=== PATIENT | female | born 2000 | race Hispanic/Latino ===

== ENCOUNTER 2020-03-20 03:16 | Inpatient (IN) | payer OTHER ==
[~2020-03-20] VITALS: Ht 165.1 cm; Wt 65.5 kg
[2020-03-20] MEDS ORDERED: HYDROCODONE/ACETAMINOPHEN 5/325 MG TAB ONE (03:51)
[2020-03-20] MEDS ORDERED: IBUPROFEN 600 MG TABLET ONE (03:51)
[2020-03-20] MEDS ORDERED: AMPICILLIN SODIUM/SULBACTAM NA 1.5GM VIAL ONE (07:25)
[2020-03-20 09:15] VITALS: BP 96/45
[2020-03-20 12:00] VITALS: BP 113/56
[2020-03-20 16:00] VITALS: BP 122/73
[2020-03-20] MEDS ORDERED: MORPHINE SULFATE 2 MG/ML 1ML SYG IM PRN (16:15)
[2020-03-20] MEDS ORDERED: MORPHINE SULFATE 2 MG/ML 1ML SYG ONE (16:20)
[2020-03-20 20:00] VITALS: BP 118/60
[2020-03-21] VITALS (22 sets, daily range): BP systolic 93–151; BP diastolic 27–91
[2020-03-21] MEDS ORDERED: LACTATED RINGERS 1000ML 1,000 ML IV ONE (12:15)
[2020-03-21 12:21] LABS: AMPHET/METH SCREEN,URINE NEGATIVE (NEGATIVE); BARBITURATE SCREEN, URINE NEGATIVE (NEGATIVE); BENZODIAZEPINES SCREEN,URINE POSITIVE (NEGATIVE); CANNABINOID SCREEN,URINE POSITIVE (NEGATIVE); COCAINE SCREEN,URINE POSITIVE (NEGATIVE); OPIATE SCREEN,URINE NEGATIVE (NEGATIVE); PHENCYCLIDINE SCREEN,URINE NEGATIVE (NEGATIVE)
[2020-03-21] MEDS ORDERED: LIDOCAINE PF 2% 5ML ABBOJECT ONE (12:58)
[2020-03-21] MEDS ORDERED: ONDANSETRON HCL 4 MG/2 ML VIAL ONE (12:58)
[2020-03-21] MEDS ORDERED: DEXAMETHASONE SOD PHOSPHATE 10MG/ML 1ML VIAL ONE (12:58)
[2020-03-21] MEDS ORDERED: MIDAZOLAM HCL 1 MG/ML 2ML VIAL ONE (12:58)
[2020-03-21] MEDS ORDERED: GLYCOPYRROLATE 1 MG/5 ML SYRINGE ONE (12:58)
[2020-03-21] MEDS ORDERED: SUCCINYLCHOLINE CHLORIDE 20 MG/ML 10 ML VIAL ONE (12:58)
[2020-03-21] MEDS ORDERED: NEOSTIGMINE 5MG/5ML SYR IV ONE (12:59)
[2020-03-21] MEDS ORDERED: FENTANYL CITRATE PF 50 MCG/1 ML 2ML VIAL ONE (12:59)
[2020-03-21] MEDS ORDERED: ROCURONIUM 10MG/1ML SYR 10 MG/ML ML ONE (12:59)
[2020-03-21] MEDS ORDERED: CEFAZOLIN SODIUM 1 GM VIAL ONE (12:59)
[2020-03-21] MEDS ORDERED: PROPOFOL 10 MG/ML 20ML VIAL IV ONE (12:59)
[2020-03-21] MEDS ORDERED: OXYMETAZOLINE HCL SPRAY 15 ML BOTTLE ONE (13:16)
== END 2020-03-21 18:55 | disposition home or self-care (01) | DRG 156 ==
LOC: EDH 03:16 → EDHIP 03:17 → 3DH 09:14
PROVIDERS: ADMIT Surgery Plastic and Reconstructive Surgery; ATTEND Surgery Plastic and Reconstructive Surgery
PROC: 0NSBXZZ Reposition Nasal Bone, External Approach (ICD-10-PCS; principal; 2020-03-21 13:00)
DX: S02.2XXA Fracture of nasal bones, initial encounter for closed fracture (principal); Y93.89 Activity, other specified; Y92.89 Other specified places as the place of occurrence of the external cause; Y99.8 Other external cause status; Z20.828 Contact with and (suspected) exposure to other viral communicable diseases
CPT/HCPCS: 70450; 70486; 71045; 80305; 81025; 87426; A4606; A6266; G0378; J0295; J0330; J0690; J1100; J2001; J2250; J2405; J2704; J2710; J3010; J3490; J7120; U0003

== ENCOUNTER 2020-04-25 20:34 | Inpatient (IN) | payer OTHER, SELFPAY ==
[~2020-04-25] VITALS: Ht 165.1 cm; Wt 59.0 kg
[2020-04-25 20:51] LABS: APPEARANCE,URINE Clear (CLEAR); BILIRUBIN,URINE Negative (NEGATIVE); COLOR,URINE Yellow (YELLOW); GLUCOSE, URINE (UA) Negative (NEGATIVE); KETONES,URINE Negative (NEGATIVE); LEUKOCYTE ESTERASE ,URINE Trace (NEGATIVE); NITRATE,URINE Negative (NEGATIVE); OCCULT BLOOD,URINE Negative (NEGATIVE); PH,URINE 6.5 (5.0-8.0); PROTEIN,URINE Negative (NEGATIVE); UROBILINOGEN,URINE 0.2 mg/dL (0.2-1.0)
[2020-04-25 20:59] LABS: AMPHET/METH SCREEN,URINE NEGATIVE (NEGATIVE); BARBITURATE SCREEN, URINE NEGATIVE (NEGATIVE); BENZODIAZEPINES SCREEN,URINE POSITIVE (NEGATIVE); CANNABINOID SCREEN,URINE NEGATIVE (NEGATIVE); COCAINE SCREEN,URINE NEGATIVE (NEGATIVE); OPIATE SCREEN,URINE NEGATIVE (NEGATIVE); PHENCYCLIDINE SCREEN,URINE NEGATIVE (NEGATIVE)
[2020-04-25 21:05] LABS: BACTERIA,URINE Few /HPF (None Seen); MUCUS,URINE Few LPF (None Seen); SQUAMOUS EPITHELIAL CELL,UR Moderate /HPF (0-2)
[2020-04-25 21:14] LABS: BASOPHILS % (AUTO) 0.3 % (0.0-5.0); EOSINOPHILS % (AUTO) 1.6 % (0.0-8.0); HEMATOCRIT 38.1 % (36-48); LYMPHOCYTES % (AUTO) 55.4 % (21.0-51.0); MEAN CORPUSCULAR HEMOGLOBIN 27.2 pg (27.0-33.0); MEAN CORPUSCULAR HGB CONC 32.8 g/dL (32.0-36.0); MEAN CORPUSCULAR VOLUME 82.8 fL (80-100); NEUTROPHILS % (AUTO) 31.5 % (40.0-77.0); PLATELET COUNT (AUTO) 200 K/uL (130-400); RED CELL DISTRIBUTION WIDTH 13.4 % (11.0-15.5); WHITE BLOOD COUNT (AUTO) 6.4 K/uL (4.8-10.8)
[2020-04-25 21:25] LABS: CARBON DIOXIDE 29 mmol/L (21-32); CHLORIDE 102 mmol/L (101-111); GLOMERULAR FILTR. RATE CALC 75 mL/min (>60); GLUCOSE,RANDOM 94 mg/dL (70-105); POTASSIUM 3.1 mmol/L (3.5-5.1); SODIUM SERUM 142 mmol/L (136-145); UREA NITROGEN, BLOOD 10 mg/dL (7-18)
[2020-04-25 21:30] LABS: ALANINE AMINOTRANSFERASE 32 U/L (12-78); ALBUMIN 4.2 g/dL (3.5-5.0); ASPARTATE AMINOTRANSFERASE 30 U/L (10-37); BILIRUBIN,TOTAL 0.2 mg/dL (0.2-1.0); TOTAL PROTEIN, SERUM 8.3 g/dL (6.0-8.3)
[2020-04-25 21:32] LABS: ALCOHOL, BLOOD < 3 mg/dL (0-10)
[2020-04-25 21:43] LABS: SALICYLATE < 2.8 mg/dL (2.8-20.0)
[2020-04-25 21:44] LABS: ACETAMINOPHEN 66 mcg/mL (10-30)
[2020-04-25] MEDS ORDERED: ONDANSETRON ODT 4MG TAB ONE (22:45)
[2020-04-26] MEDS ORDERED: ACETYLCYSTEINE 20% 200MG/ML 30ML VIAL ONE ×3 (02:01→10:30)
[2020-04-26] MEDS ORDERED: 0.9% NACL 500ML IV.SOLN 500 ML IV ONE ×2 (02:08→10:31)
[2020-04-26] MEDS ORDERED: DEXTROSE 5%-WATER 500 ML IV ONE (04:54)
[2020-04-26 05:28] LABS: CREATININE 0.8 mg/dL (0.5-1.5); POTASSIUM 3.3 mmol/L (3.5-5.1)
[2020-04-26 05:39] LABS: ALBUMIN 4.2 g/dL (3.5-5.0); BILIRUBIN,TOTAL 0.3 mg/dL (0.2-1.0); INR 1.09 (0.85-1.15); PROTHROMBIN TIME 11.8 SEC (9.6-11.6); TOTAL PROTEIN, SERUM 7.8 g/dL (6.0-8.3)
[2020-04-26 05:40] LABS: PARTIAL THROMBOPLASTIN TIME 34.5 SEC (26.3-35.5)
[2020-04-26] MEDS ORDERED: ONDANSETRON 4MG INJ IVP PRN (09:00)
[2020-04-26] MEDS: 0.9%NACL 1000ML 1,000 ML IV SCH (09:00)
[2020-04-26 09:37] LABS: INR 1.13 (0.85-1.15); PROTHROMBIN TIME 12.2 SEC (9.6-11.6)
[2020-04-26 09:38] LABS: PARTIAL THROMBOPLASTIN TIME 34.2 SEC (26.3-35.5)
[2020-04-26 09:47] LABS: ACETAMINOPHEN 141 mcg/mL (10-30); ALANINE AMINOTRANSFERASE 29 U/L (12-78); ALBUMIN 4.2 g/dL (3.5-5.0); ASPARTATE AMINOTRANSFERASE 26 U/L (10-37); BILIRUBIN,DIRECT < 0.1 mg/dL (0.0-0.3); BILIRUBIN,TOTAL 0.3 mg/dL (0.2-1.0); TOTAL PROTEIN, SERUM 7.8 g/dL (6.0-8.3)
[2020-04-26] MEDS ORDERED: ACETYLCYSTEINE 20% 200MG/ML 4ML VIAL ONE (10:29)
[2020-04-26] MEDS ORDERED: 0.9%NACL 1000ML 1,000 ML IV ONE (10:38)
[2020-04-26 12:37] LABS: INR 1.15 (0.85-1.15); PROTHROMBIN TIME 12.4 SEC (9.6-11.6)
[2020-04-26 12:39] LABS: PARTIAL THROMBOPLASTIN TIME 36.7 SEC (26.3-35.5)
[2020-04-26 12:46] LABS: ALANINE AMINOTRANSFERASE 28 U/L (12-78); ASPARTATE AMINOTRANSFERASE 24 U/L (10-37); BILIRUBIN,DIRECT < 0.1 mg/dL (0.0-0.3); BILIRUBIN,TOTAL 0.3 mg/dL (0.2-1.0); TOTAL PROTEIN, SERUM 7.5 g/dL (6.0-8.3)
[2020-04-26 12:57] LABS: ACETAMINOPHEN 104 mcg/mL (10-30)
[2020-04-26 15:53] LABS: INR 1.13 (0.85-1.15); PROTHROMBIN TIME 12.2 SEC (9.6-11.6)
[2020-04-26 16:01] LABS: ALANINE AMINOTRANSFERASE 28 U/L (12-78); ALBUMIN 4.1 g/dL (3.5-5.0); ASPARTATE AMINOTRANSFERASE 20 U/L (10-37); BILIRUBIN,TOTAL 0.2 mg/dL (0.2-1.0); TOTAL PROTEIN, SERUM 7.8 g/dL (6.0-8.3)
[2020-04-26 16:08] LABS: ACETAMINOPHEN 71 mcg/mL (10-30)
[2020-04-26 16:09] LABS: BILIRUBIN,DIRECT < 0.1 mg/dL (0.0-0.3)
[2020-04-26 18:35] LABS: INR 1.14 (0.85-1.15); PROTHROMBIN TIME 12.3 SEC (9.6-11.6)
[2020-04-26 18:36] LABS: PARTIAL THROMBOPLASTIN TIME 35.6 SEC (26.3-35.5)
[2020-04-26] MEDS ORDERED: LORAZEPAM 2 MG/ML 1 ML VIAL IVP PRN (19:15)
[2020-04-26 19:27] LABS: ALBUMIN 3.8 g/dL (3.5-5.0); BILIRUBIN,DIRECT 0.1 mg/dL (0.0-0.3); BILIRUBIN,TOTAL 0.2 mg/dL (0.2-1.0); TOTAL PROTEIN, SERUM 7.2 g/dL (6.0-8.3)
[2020-04-26] MEDS ORDERED: KCL 20 MEQ ERTAB PO SCH (20:26)
[2020-04-26] MEDS ORDERED: POTASSIUM CHLORIDE 10% ELIXIR 20 MEQ/15 ML UDCUP ONE (20:47)
[2020-04-26] MEDS ORDERED: FAMOTIDINE 20MG VIAL IV SCH (21:00)
[2020-04-26 21:38] LABS: ALBUMIN 3.7 g/dL (3.5-5.0); BILIRUBIN,DIRECT 0.1 mg/dL (0.0-0.3); BILIRUBIN,TOTAL 0.2 mg/dL (0.2-1.0); INR 1.12 (0.85-1.15); PROTHROMBIN TIME 12.1 SEC (9.6-11.6)
[2020-04-26 21:39] LABS: PARTIAL THROMBOPLASTIN TIME 35.3 SEC (26.3-35.5)
[2020-04-27] MEDS ORDERED: ACETYLCYSTEINE 20% 200MG/ML 30ML VIAL ONE (00:15)
[2020-04-27] MEDS ORDERED: DEXTROSE 5%-WATER 500 ML IV ONE (00:27)
[2020-04-27 01:17] LABS: INR 1.14 (0.85-1.15); PROTHROMBIN TIME 12.3 SEC (9.6-11.6)
[2020-04-27 01:18] LABS: PARTIAL THROMBOPLASTIN TIME 34.5 SEC (26.3-35.5)
[2020-04-27 01:20] LABS: ALBUMIN 3.7 g/dL (3.5-5.0); BILIRUBIN,DIRECT 0.1 mg/dL (0.0-0.3); BILIRUBIN,TOTAL 0.2 mg/dL (0.2-1.0); TOTAL PROTEIN, SERUM 7.1 g/dL (6.0-8.3)
[2020-04-27] MEDS: 0.9%NACL 1000ML 1,000 ML IV SCH (05:00)
[2020-04-27 06:20] LABS: ALANINE AMINOTRANSFERASE 23 U/L (12-78); ALBUMIN 3.6 g/dL (3.5-5.0); ASPARTATE AMINOTRANSFERASE 21 U/L (10-37); BILIRUBIN,DIRECT < 0.1 mg/dL (0.0-0.3); BILIRUBIN,TOTAL 0.2 mg/dL (0.2-1.0); PHOSPHORUS 2.8 mg/dL (2.5-4.9); TOTAL PROTEIN, SERUM 6.8 g/dL (6.0-8.3)
[2020-04-27 06:21] LABS: INR 1.13 (0.85-1.15); PROTHROMBIN TIME 12.2 SEC (9.6-11.6)
[2020-04-27 06:22] LABS: PARTIAL THROMBOPLASTIN TIME 34.5 SEC (26.3-35.5)
[2020-04-27] MEDS ORDERED: MAGNESIUM 2GM PREMIX 50ML 50 ML IV PRN (07:30)
[2020-04-27] MEDS ORDERED: MAGNESIUM 2GM PREMIX 50ML 50 ML IV ONE (07:43)
[2020-04-27] MEDS ORDERED: PANTOPRAZOLE 40 MG TAB DR ONE (08:41)
[2020-04-27] MEDS: FOLIC ACID 1 MG, THIAMINE HCL 100 MG in 0.9%NACL 1000ML 1,000 ML IV SCH (09:00)
[2020-04-27] MEDS: PANTOPRAZOLE 40 MG TAB DR PO SCH (09:00)
[2020-04-27 10:21] LABS: INR 1.08 (0.85-1.15); PROTHROMBIN TIME 11.7 SEC (9.6-11.6)
[2020-04-27 10:22] LABS: PARTIAL THROMBOPLASTIN TIME 33.5 SEC (26.3-35.5)
[2020-04-27 10:43] LABS: ALBUMIN 3.4 g/dL (3.5-5.0); BILIRUBIN,DIRECT 0.1 mg/dL (0.0-0.3); BILIRUBIN,TOTAL 0.2 mg/dL (0.2-1.0); TOTAL PROTEIN, SERUM 6.8 g/dL (6.0-8.3)
[2020-04-27 11:00] VITALS: BP 115/70
[2020-04-27 15:57] VITALS: BP 116/90
[2020-04-27 19:45] VITALS: BP 100/67
[2020-04-27 20:22] VITALS: BP 131/77
[2020-04-28] VITALS: BP 107/66
[2020-04-28 04:00] VITALS: BP 121/68
[2020-04-28 06:27] LABS: HEMATOCRIT 35.3 % (36-48); MEAN CORPUSCULAR HEMOGLOBIN 26.7 pg (27.0-33.0); MEAN CORPUSCULAR HGB CONC 32.3 g/dL (32.0-36.0); MEAN CORPUSCULAR VOLUME 82.7 fL (80-100); RED BLOOD CELL COUNT(AUTO) 4.27 MIL/uL (4.00-5.50); RED CELL DISTRIBUTION WIDTH 13.2 % (11.0-15.5); WHITE BLOOD COUNT (AUTO) 4.5 K/uL (4.8-10.8)
[2020-04-28 06:56] LABS: ALANINE AMINOTRANSFERASE 26 U/L (12-78); ALBUMIN 3.6 g/dL (3.5-5.0); ASPARTATE AMINOTRANSFERASE 25 U/L (10-37); BILIRUBIN,TOTAL 0.3 mg/dL (0.2-1.0); CARBON DIOXIDE 22 mmol/L (21-32); CHLORIDE 106 mmol/L (101-111); CREATININE 0.7 mg/dL (0.5-1.5); GLOMERULAR FILTR. RATE CALC 113 mL/min (>60); GLUCOSE,RANDOM 81 mg/dL (70-105); POTASSIUM 3.6 mmol/L (3.5-5.1); SODIUM SERUM 140 mmol/L (136-145); TOTAL PROTEIN, SERUM 7.1 g/dL (6.0-8.3); UREA NITROGEN, BLOOD 9 mg/dL (7-18)
[2020-04-28 06:57] LABS: ACETAMINOPHEN < 1 mcg/mL (10-30)
[2020-04-28 08:00] VITALS: BP 120/66
[2020-04-28] MEDS: PANTOPRAZOLE 40 MG TAB DR PO SCH (08:43)
[2020-04-28] MEDS: FOLIC ACID 1 MG, THIAMINE HCL 100 MG in 0.9%NACL 1000ML 1,000 ML IV SCH (09:49)
[2020-04-28 12:00] VITALS: BP 115/67
[2020-04-28] MEDS ORDERED: ASCO500W7 PO (14:42)
[2020-04-28] MEDS ORDERED: CHOL500050 PO (14:42)
[2020-04-28 16:00] VITALS: BP 124/58
== END 2020-04-28 18:00 | disposition home or self-care (01) | DRG 179 ==
LOC: EDH 20:34 → EDHIP 20:35 → 4BH 04-27 10:43 → 4AH 04-27 18:05
PROVIDERS: ADMIT Family Medicine; ATTEND Family Medicine
DX: U07.1 COVID-19 (principal); T39.1X2A Poisoning by 4-Aminophenol derivatives, intentional self-harm, initial encounter; T42.4X2A Poisoning by benzodiazepines, intentional self-harm, initial encounter; E87.6 Hypokalemia; F32.9 Major depressive disorder, single episode, unspecified; F41.9 Anxiety disorder, unspecified; Z83.3 Family history of diabetes mellitus; Z82.49 Family history of ischemic heart disease and other diseases of the circulatory system; Y92.89 Other specified places as the place of occurrence of the external cause
CPT/HCPCS: 36415; 71045; 80053; 80076; 80305; 81001; 81025; 83735; 84100; 85025; 85027; 85610; 85730; 86701; 86708; 87390; 87426; 87520; 93005; 99281; G0378; G0481; J3411; J3475; J3490; J7030; J7040; J7060; J7608